=== PATIENT | male | born 1950 | race Caucasian/White ===

== ENCOUNTER 2022-03-25 08:54 | Outpatient (CLI) | payer MEDICARE, OTHER, SELFPAY ==
--- NOTE | 2022-03-25 11:00 | NEURO_ITS ---
Impression: # Complains of numbness of lower extremities. # Motor/sensory asymmetrical axonal neuropathy. # Neurogenic changes in muscles without active fibrilation. # Clinical correlation recommended. Nerve Conduction Studies Anti Sensory Summary Table Stim Site NR Peak (ms) P-T Amp (?V) Site1 Site2 Delta-P (ms) Dist (cm) Kristian (m/s) Left Sup Fibular Anti Sensory (Ant Lat Mall) NO RESPONSE 14 cm NR 14 cm Ant Lat Mall 16.0 Right Sup Fibular Anti Sensory (Ant Lat Mall) NO RESPONSE 14 cm NR 14 cm Ant Lat Mall 16.0 Left Sural Anti Sensory (Lat Mall) Calf 3.6 19.9 Calf Lat Mall 3.6 16.0 44 Right Sural Anti Sensory (Lat Mall) NO RESPONSE Calf NR Calf Lat Mall 16.0 Motor Summary Table Stim Site NR Onset (ms) O-P Amp (mV) Site1 Site2 Delta-0 (ms) Dist (cm) Kristian (m/s) Left Peroneal Motor (Vastus Med) Ankle 4.3 1.9 Popit Ankle 13.0 39.0 30 Popit 17.3 1.7 Right Peroneal Motor (Vastus Med) Ankle 4.6 1.2 Popit Ankle 10.6 37.0 35 Popit 15.2 1.2 Left Tibial Motor (Abd Bethea Brev) Ankle 4.7 0.5 Knee Ankle 11.8 41.0 35 Knee 16.5 0.4 Right Tibial Motor (Abd Bethea Brev) Ankle 4.1 0.6 Knee Ankle 13.2 40.0 30 Knee 17.3 0.1 F Wave Studies NR F-Lat (ms) L-R F-Lat (ms) Left Peroneal (Mrkrs) (EDB) 61.44 2.16 Right Peroneal (Mrkrs) (EDB) 59.28 2.16 Left Tibial (Mrkrs) (Abd Hallucis) 60.12 0.00 Right Tibial (Mrkrs) (Abd Hallucis) 60.12 0.00 EMG Side Muscle Nerve Root Ins Act Fibs Amp Dur Recrt Comment Right AntTibialis Dp Br Fibular L4-5 Nml Nml Nml Nml Reduced Right Gastroc Tibial S1-2 Nml Nml Nml Nml Reduced Right Fibularis Long Sup Br Fibular L5-S1 Nml Nml Nml Nml Reduced Right Flex Dig Long Tibial L5-S2 Nml Nml Nml Nml Reduced Right Ext Dig Brev Dp Br Fibular L5, S1 Nml Nml Nml Nml Reduced Left AntTibialis Dp Br Fibular L4-5 Nml Nml Nml Nml Reduced Left Gastroc Tibial S1-2 Nml Nml Nml Nml Reduced Left Fibularis Long Sup Br Fibular L5-S1 Nml Nml Nml Nml Reduced Left Flex Dig Long Tibial L5-S2 Nml Nml Nml Nml Reduced Left Ext Dig Brev Dp Br Fibular L5, S1 Nml Nml Nml Nml Reduced Right QuadratusFem QuadFemoris L4-5, S1 Nml Nml Nml Nml Reduced Left QuadratusFem QuadFemoris L4-5, S1 Nml Nml Nml Nml Reduced MTDD
== END 2022-03-25 08:55 | disposition home or self-care (01) ==
LOC: ANHNEURO 08:57
PROVIDERS: PCP Family Medicine; Visit Provider Family Medicine
DX: R20.2 Paresthesia of skin (principal)
CPT/HCPCS: 95886; 95910

== ENCOUNTER → 2022-04-04 14:57 | Outpatient (CLI) | payer MEDICARE, OTHER, SELFPAY ==
--- NOTE | ~2022-04-04 | XR_ITS ---
EXAMINATION: XR foot RT min 3V DATE: 04/04/2022 15:22 INDICATION: Right great toe pain. TECHNIQUE: 4 views of right foot were obtained. COMPARISON: None. FINDINGS: Bone alignment is normal. No fracture. There is mild osteoarthritis of first metatarsophala ngeal joint and some of the interphalangeal joints and midfoot joints. There is mild flattening of th e heads of the second and third metatarsals, consistent with osteonecrosis (Freiberg's infraction). T here are enthesophytes at the posterior and plantar aspects of calcaneal tuberosity. IMPRESSION: 1. Mild polyarticular osteoarthritis. Reviewed, dictated and finalized at location A.
== END ==
PROVIDERS: PCP Family Medicine; Visit Provider Family Medicine
DX: M19.071 Primary osteoarthritis, right ankle and foot (principal)
CPT/HCPCS: 73630

== ENCOUNTER → 2022-10-25 14:44 | Outpatient (CLI) | payer MEDICARE, OTHER, SELFPAY ==
--- NOTE | ~2022-10-25 | US_ITS ---
EXAMINATION:US venous doppler LE RT INDICATION:Right lower extremity swelling TECHNIQUE: Multiple grayscale, color flow and Doppler images of the right lower extremity deep venous systems were obtained and reviewed. COMPARISON:08/14/2016 FINDINGS: The common femoral, superficial femoral and popliteal veins demonstrate normal respiratory variation, augmentation and compressibility. Color flow is also seen within the posterior tibial, pe roneal, greater saphenous and profunda veins. IMPRESSION: 1: No lower extremity deep venous thrombosis. Reviewed, dictated and finalized at location A. NG CAGE CASHIER
== END ==
PROVIDERS: PCP Family Medicine; Visit Provider Family Medicine
DX: M79.89 Other specified soft tissue disorders (principal)
CPT/HCPCS: 93971

== ENCOUNTER 2023-01-09 14:30 | Outpatient (RCR) | payer MEDICARE, OTHER, SELFPAY ==
[2022-10-24 11:24] VITALS: BMI 32.2
[2022-10-24 14:50] VITALS: BMI 32.2
[2023-01-09 14:57] VITALS: BMI 32.2; BMI 32.7
== END 2023-01-13 11:06 | disposition home or self-care (01) ==
LOC: ANHDMC 14:30
PROVIDERS: PCP Family Medicine; Visit Provider Family Medicine
DX: E11.40 Type 2 diabetes mellitus with diabetic neuropathy, unspecified (principal); Z71.89 Other specified counseling; Z71.3 Dietary counseling and surveillance
CPT/HCPCS: 97802; 97803; 99199; G0108; G0109

== ENCOUNTER 2023-05-08 13:00 | Outpatient (RCR) | payer MEDICARE, OTHER, SELFPAY ==
[2023-05-08 13:05] VITALS: BMI 32.3
[2023-05-08 13:39] VITALS: BMI 32.3
== END 2023-06-23 10:50 | disposition home or self-care (01) ==
LOC: ANHDMC 13:00
PROVIDERS: PCP Family Medicine; Visit Provider Family Medicine
DX: E11.40 Type 2 diabetes mellitus with diabetic neuropathy, unspecified (principal); Z71.3 Dietary counseling and surveillance; Z71.89 Other specified counseling
CPT/HCPCS: 97803; G0109

== ENCOUNTER 2024-05-11 11:25 | Outpatient (CLI) | payer MEDICARE, OTHER, SELFPAY ==
[2024-05-11 13:47] LABS: Alanine Aminotransferase 29 U/L (6-50); Albumin Level 3.9 g/dL (3.5-5.1); Alkaline Phosphatase 87 U/L (38-126); Anion Gap 5 mmol/L (4-12); Aspartate Amino Transferase 54 U/L (17-59); Bilirubin,Total 0.7 mg/dL (0.2-1.3); Blood Urea Nitrogen 21 mg/dL (9-20); Carbon Dioxide 29 mmol/L (22-30); Chloride 105 mmol/L (98-107); Cholesterol 122 mg/dL (0-200); Estimated Glomerular Filt Rate > 60; Glucose 186 mg/dL (65-110); HDL Direct 28 mg/dL; Lipase 132 U/L (23-300); Potassium 4.7 mmol/L (3.4-5.0); Sodium 139 mmol/L (137-145); Triglycerides 236 mg/dL (<150)
[2024-05-11 13:58] LABS: LDL Cholesterol Direct 71 mg/dL
== END 2024-05-11 11:26 | disposition home or self-care (01) ==
PROVIDERS: PCP Family Medicine; Visit Provider Internal Medicine
DX: E11.40 Type 2 diabetes mellitus with diabetic neuropathy, unspecified (principal)
CPT/HCPCS: 36415; 80053; 80061; 83690

== ENCOUNTER 2025-02-16 01:01 | Day surgery (SDC) | payer MEDICARE, OTHER, SELFPAY ==
[2025-02-07 13:27] VITALS: BMI 33.6
--- OUTSIDE RECORDS SUMMARY | 2025-02-16 01:04 | XMS_ITS | Encounter Summary ---
Author Organization [employer] Address 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
--- OUTSIDE RECORDS SUMMARY | 2025-02-16 01:04 | XMS_ITS | Encounter Summary ---
Author Organization [employer] Address 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
--- OUTSIDE RECORDS SUMMARY | 2025-02-16 01:04 | XMS_ITS | Encounter Summary ---
Author Organization [employer] Address 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
--- OUTSIDE RECORDS SUMMARY | 2025-02-16 01:04 | XMS_ITS | Clinical Summary ---
Author Organization [facility] [employer] Address [address] [place] [address] Care Team Providers Care Youth Associate Name Role Phone Unavailable Primary Care Provider Unavailabl e Source Comments [facility] [employer]non-owned Affiliates and Associated Physician Practices is amultiple site organization consisting of ambulatory clinics and hospital sitesin [place], [place], [place] and [place]. This disclosure is being madepursuant to the Care Everywhere program and may not contain all information available regarding this patient. Last updated 18.[facility] [employer] Social History Tobacco Use Types Packs/Day Years Used Date Smoking Tobacco: Never Assessed Sex and Gender Information Value Date Recorded Sex Assigned at Not on file Gender Identity Not on file Sexual Orientation Not on file Last Filed Vital Signs Vital Sign Reading Time Taken Comments Blood Pressure 125/75 09/10/2014 1:00 AM CDT Pulse 86 09/10/2014 1:00 AM CDT Temperature 37.1 C (98.8 F) 09/09/2014 11:45 PM CDT Respiratory Rate 22 09/09/2014 11:45 PM CDT Oxygen Saturation 96% 09/10/2014 1:00 AM CDT Inhaled Oxygen Concentration - - Weight 90.7 kg (200 lb) 09/09/2014 11:45 PM CDT Height 172.7 cm (5' 8 ) 09/09/2014 11:45 PM CDT Body Mass Index 30.41 09/09/2014 11:45 PM CDT Plan of Treatment Health Maintenance Due Date Last Done Comments COLOGUARD (AGES 45-75) - COL ON CA SCREENING 1952 COLON MONITORING 1952 COLONOSCOPY - COLON CA SCREENING 1952 CT COLONOGRAPHY - COLON CA SCREENING 1952 Colorectal Cancer Screening 1952 FIT - COLON CA SCREENING 1952 FLEX SIG - COLON CA SCREENING 1952 LIPID TESTING 1952 HEPATITIS C SCREENING 09/16/1970 DTAP/TDAP/TD VACCINES (1 - Tdap) 1971 PNEUMOCOCCAL VACCINE 50+ (1 of 1 - PCV) 2002 ZOSTER VACCINE (1 of 2) 2002 COVID-19 VACCINE (1 - 2023-2 5 season) 2024 INFLUENZA VACCINE (#1) 2024 DEPRESSION SCREENING 11/17/2024 Respiratory Syncytial Virus (RSV) Vaccine Pt: or over 60 yrs (1 - 1-dose 75+ series) 2027 HEPATITIS B VACCINE Aged Out No longe r eligible based on patient's age to complete this topic HIB VACCINE Aged Out No longer eligi ble based on patient's age to complete this topic HPV VACCINE Aged Out No longer eligi ble based on patient's age to complete this topic MENINGOCOCCAL (Group B) VACC INE SHARED DECISION-MAKING Aged Out No longer eligibl e based on patient's age to complete this topic MENINGOCOCCAL GROUPS A/C/Y/W VACCINE Aged Out No longer eligible b ased on patient's age to complete this topic
--- OUTSIDE RECORDS SUMMARY | 2025-02-16 01:04 | XMS_ITS | Clinical Summary ---
Author Organization [facility] Address [address] [place] [address] Care Team Providers Care Arc Cutter Plasma Arc Name Role Phone Unavailable Primary Care Provider Unavailabl e Social History Tobacco Use Types Packs/Day Years Used Date Smoking Tobacco: Never Assessed Sex and Gender Information Value Date Recorded Sex Assigned at Not on file Legal Sex Male 7:16 PM CDT Gender Identity Not on file Sexual Orientation Not on file Plan of Treatment Health Maintenance Due Date Last Done Comments Colorectal Cancer Screening Colonoscopy (10 Years) 1952 Hepatitis C 1970 DTaP, Tdap and Td Vaccines ( 1 - Tdap) 1971 Zoster Vaccines (1 of 2) 2002 Pneumococcal Vaccine: 65+ Ye ars (1 of 1 - PCV) 2017 COVID-19 Vaccine ( - 2023-2 5 season) 2024 Influenza Adult (#1) 2024 RSV Immunization or 60+ Years (1 - 1-dose 75+ series) 2027 Meningococcal B Vaccine Aged Out No l onger eligible based on patient's age to complete this topic Meningococcal Vaccine Aged Out No rashaad jaspreet eligible based on patient's age to complete this topic RSV Immunizations Under 20 Months Aged Out No longer eligible based on patient's age to complete this topic
--- OUTSIDE RECORDS SUMMARY | 2025-02-16 01:04 | XMS_ITS | Clinical Summary ---
Author Organization [facility] [address] Address [address] [place] [address] Care Team Providers Care Lipstick Molder Name Role Phone Iván العراقي MD Primary Care Provider [phone] Allergies Active Allergy Reactions Criticality Noted Date Comments Codeine Other (See comments) Low 06/24/2018 Difficulty urinating Dextromethorphan Other (See comments) Low 8 Difficulty urinating Penicillins Anaphylaxis High Sulfa (Sulfonamide Antibiotics) Hives Medium Tetracycline Hives Medium Tramadol Other (See comments) Low convulsions Medications aspirin (ASPIRIN LOW DOSE) 81 mg tablet take 1 tablet (81MG) by oral route every day 0 2 Active ibuprofen (ADVIL,MOTRIN) 200 mg tab/cap Take 2 tablet/capsule (400 mg total) by mouth every 6 (six) hours as needed for pain Active albuterol HFA (PROVENTIL HFA,VENTOLIN HFA,PROAIR HFA) 90 mcg/actuation inhaler Inhale 2 puffs every 4 (four) hours as needed for wheezing Active famotidine (PEPCID) 20 mg tablet Take 1 tablet (20 mg total) by mouth 2 (two) times a day Active folic acid/multivit-m in/lutein (CENTRUM SILVER ORAL) Take 1 tablet by mouth daily Active omega 1-our-znt-fish oil 1,000 mg (120 mg-180 mg) capsule Take 2 capsules (2,000 mg total) by mouth daily Active cholecalciferol (VITAMIN D-3) 2000 unit capsule 1 capsule (2,000 Units total) 2 (two) times a day Active vit C/E/Zn/coppr/trevor tein/zeaxan (PRESERVISION AREDS-2 ORAL) Take by mouth Ac tive metFORMIN (GLUCOPHAGE) 500 mg tablet TAKE 1 TABLET BY MOUTH TWICE A DAY FOR 90 DAYS 2 Active Ozempic 0.25 mg or 0.5 mg (2 mg/3 mL) pen injector injection Inject 0.25 mg as directed once a week 3 Active simvastatin (ZOCOR) 20 mg tablet TAKE 1 TABLET BY MOUTH EVERY DAY AT NIGHT 90 tablet 3 3 Active Additional Information Patient not taking.Reported on 06/15/2024 atorvastatin (LIPITOR) 10 mg tablet Take 1 tablet (10 mg total) by mouth daily 4 Active glimepiride (AMARYL) 1 mg tablet Take 1 tablet (1 mg total) by mouth 2 (two) times a day 4 Active lisinopriL (PRINIVIL,ZESTR IL) 5 mg tablet TAKE 1 TABLET BY MOUTH EVERY DAY 90 tablet 1 4 Active carvediloL (COREG) 12.5 mg tablet TAKE 1 TABLET BY MOUTH TWICE A DAY WITH FOOD 180 tablet 1 4 Active Active Problems Problem Noted Date Diagnosed Date Prostate cancer 03/26/2019 Overview (03/26/2019): Added automatically from request for surgery Coronary artery disease invo lving [place] coronary artery of [place] heart without angina pectoris 08/14/2017 S/P coronary artery stent placement 08/14/2017 Surgical History Surgery Date Site/Laterality Comments CARDIAC STENT PLACEMENT KNEE ARTHROSCOPY Right x3 PROSTATE SURGERY 05/18/2019 biopsy; & 02/2018 CHOLECYSTECTOMY POPLITEAL SYNOVIAL CYST EXCISION Right HEMORRHOID SURGERY 11/17/1973 - 11/16/1974 Medical History Medical History Date Comments Hypertension Hypertension Myocardial infarction (HCC) 02/2010 Asthma PONV (postoperative nausea and vomiting) Hyperlipidemia GERD (gastroesophageal reflux disease) Feeling anxious related to upcom ing prostate surgery Cancer (HCC) 01/2019 skin cancer on r ight hand Prostate CA (HCC) Family History Medical History Relation Name Comments Coronary artery disease Father Pati nary Artery Disease; Cancer Mother pancreatic Relation Name Status Comments Brother unknown Alive Father Mother Sister unknown Alive Social History Tobacco Use Types Packs/Day Years Used Date Smoking Tobacco: Every Day Cigarettes 1 58.2 Started: 1964 Smokeless Tobacco: Never Tobacco Cessation:Ready to Q uit: Not Asked; Counseling Given: Not Answered Comments:Counselled pt to contact PCP for assist with quitting, instructed pt not smoke for 24 hrs prior to surgery. 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 Gender Identity Not on file Sexual Orientation Not on file Obstetrics History Last Filed Vital Signs Vital Sign Reading Time Taken Comments Blood Pressure 124/78 06/15/2024 1:58 PM CDT Pulse 70 06/15/2024 1:58 PM CDT Temperature 36.2 C (97.2 F) 08/01/2020 8:58 AM CDT Respiratory Rate 16 08/17/2019 8:15 AM CDT Oxygen Saturation 93% 06/15/2024 1:58 PM CDT Inhaled Oxygen Concentration - - Weight 97.6 kg (215 lb 1.6 oz) 06/15/2024 1:58 P M CDT Height 172.7 cm (5' 8 ) 06/15/2024 1:58 PM CDT Body Mass Index 32.71 06/15/2024 1:58 PM CDT Plan of Treatment Health Maintenance Due Date Last Done Comments Colon Cancer Screening-Colonoscopy 1952 Depression Screening 1952 Fall Risk Assessment 1952 Hepatitis C Screening 1952 DTaP/Tdap/Td Vaccine (1 - Tdap) 1963 Hepatitis B Screening 1970 Pneumococcal vaccine 65+ (1 of 2 - PCV) 1971 Lung Cancer Screening 2002 Zoster Vaccine (1 of 2) 2002 Abdominal Aortic Aneurysm (AAA) Screen 2017 Well Visit 65+ 2017 Influenza Vaccine (#1) 2024 08/31/2017 Prostate Cancer Screening-PSA Discontinued 09/28/2019, 08/30/2019 Procedures Procedure Name Priority Date/Time Associated Diagnosis Comments PSA DIAGNOSTIC Routine 09/28/2019 12:48 PM ALTERATION MANAGER Prostate cancer (HCC) from Last 3 Months or Most Recently Relevant to Health Maintenance Results * PSA diagnostic (09/28/2019 12:48 PM ALTERATION MANAGER) PSA-Total <0.01 <=5.40 ng/mL [facility] Comment: Interpretive Data AGE SEX REFERENCE INTERVAL 0 minutes-150 years Female None 0 minutes-49 years Male None 50-59 years Male 0-3.90 60-69 years Male 0-5.40 70-79 years Male 0-6.20 80-150 years Male 0-6.20 Current interpretive data last revised 2018. Blood specimen (specimen) 09/28/2019 12:48 PM ALTERATION MANAGER 09/28/2019 4:08 PM ALTERATION MANAGER us Migel Cartagena MD LAB BLOOD ORDERABLES Fi nal Result ALEXANDER LANCASTER [id number] [address] Lozoya Department of Laboratories [place] [phone] from Last 3 Months or Most Recently Relevant to Health Maintenance Insurance MEDICARE [facility] MEDICARE [facility] MEDICARE [facility] Advance Directives For more information, please contact: [phone] Documents on File Type Date Recorded Patient Congressional Aide Expl anation ADVANCE DIRECTIVE 08/18/2019 1:54 PM MARBELLA Faulkner WILL ADVANCE DIRECTIVE 08/18/2019 1:54 PM POWER OF ARTIST REPRESENTATIVE-FINANCIAL/MEDICAL * Full Code (Latest Code Status on File) Date Activated Date Inactivated Comments 08/16/2019 4:21 PM 08/17/2019 6:28 PM Care Teams Lipstick Molder Relationship Specialty Start Date End Date Iván العراقي MD [address] [place] [id number] PCP - General 02/14/17
--- OUTSIDE RECORDS SUMMARY | 2025-02-16 01:04 | XMS_ITS | Encounter Summary ---
Author Organization [employer] Address [address] [place] [address] Care Team Providers Care Closing Coordinator Name Role Phone Ally Denson Primary Care Provider Unava ilable Encounter Details Date Type Department Care Team (Late st Contact Info) Description 03/22/2002 Outpatient Historical [facility] Support [facility]. ([facility]) [address] 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
--- OUTSIDE RECORDS SUMMARY | 2025-02-16 01:04 | XMS_ITS | Clinical Summary ---
Author Organization 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
--- OUTSIDE RECORDS SUMMARY | 2025-02-16 01:04 | XMS_ITS | Referral Summary ---
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 artery of [place] heart without angina pectoris 08/14/2017 S/P coronary artery stent placement 08/14/2017 Social History Tobacco Use Types Packs/Day Years [...] on file Legal 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 Gender Identity Not on file Sexual Orientation [...] 06/15/2024 1:58 PM CDT Plan of Treatment Not on file Procedures Procedure Name Priority Date/Time Associated Diagnosis Comments PSA DIAGNOSTIC Routine 09/28/2019 12:48 PM CHIP LOFT WORKER Prostate cancer (HCC) from Last 3 Months or Most Recently Relevant to Health Maintenance Results * PSA diagnostic (09/28/2019 12:48 PM CHIP LOFT WORKER) PSA-Total <0.01 <=5.40 ng/mL [facility]LEX[facility] Comment: Interpretive Data AGE SEX REFERENCE INTERVAL 0 minutes-150 years Female None 0 minutes-49 years Male None 50-59 years Male 0-3.90 60-69 years Male 0-5.40 70-79 years Male 0-6.20 80-150 years Male 0-6.20 Current interpretive data last revised 2018. Blood specimen (specimen) 09/28/2019 12:48 PM CHIP LOFT WORKER 09/28/2019 4:08 PM CHIP LOFT WORKER us Migel Cartagena MD LAB BLOOD ORDERABLES Fi nal Result ALEXANDER [address] Sofía Lozoya Department [place] [address] from Last 3 Months or Most Recently Relevant to Health Maintenance Insurance MEDICARE [facility] MEDICARE [facility] [place] MEDICARE [facility] [facility] Advance Directives For more information, please contact: [phone] Documents on File Type Date Recorded Patient Or Assistant Expl anation ADVANCE DIRECTIVE 08/18/2019 1:54 PM MARBELLA Faulkner WILL ADVANCE DIRECTIVE 08/18/2019 1:54 PM POWER OF MANUSCRIPT EDITOR-FINANCIAL/MEDICAL * Full Code (Latest Code Status on File) Date Activated Date Inactivated Comments 08/16/2019 4:21 PM 08/17/2019 6:28 PM Care Teams Poultry Scientist Relationship Specialty Start Date End Date Iván العراقي MD [address] [place] [id number] PCP - General 02/14/17
[2025-02-16 11:03] VITALS: BP 146/81; PULSE 82; RESP 18; TEMP 37.1; O2SAT 96
[2025-02-16] MEDS: LACTATED RINGERS 1,000 ML 150 ML IV CONT (11:15)
[2025-02-16 11:16] LABS: Glucose Point of Care 185 mg/dl (65-105)
--- NOTE | 2025-02-16 11:54 | P.PNAN_ITS ---
Anes - Initial Pre Proc Eval Procedure: Operation Date: 02/16/25 12:30 Proposed Procedures p Screening Colonoscopy - Alvarado Caldwell MD Date/Time: 02/16/25 11:54 Surgeon: Alvarado Caldwell MD Pre Op Diagnosis: Screening Patient Data Age: 74 Gender: M Height: 1.73 m Weight: 94.8 kg Last Vital Signs Temp 37.1 C 02/16/25 11:03 Pulse 82 02/16/25 11:03 Resp 18 02/16/25 11:03 BP 146/81 H 02/16/25 11:03 Pulse Ox 96 02/16/25 11:03 O2 Del Method Room Air 02/16/25 11:03 Allergies Allergy/AdvReac Type Severity Reaction Status Date / Time codeine Allergy Intermediate unable to Verified 02/16/25 11:02 urinate Penicillins Allergy Unknown Anaphylaxis Verified 02/16/25 11:02 Sulfa (Sulfonamide Allergy Unknown Rash Verified 02/16/25 11:02 Antibiotics) tetracycline Allergy Unknown Rash Verified 02/16/25 11:02 tramadol Allergy Unknown Difficulty Verified 02/16/25 11:02 Breathing dextromethorphan AdvReac unable to Verified 02/16/25 11:02 urinate Home Medications ?Medication ?Instructions ?Recorded ?Confirmed ?Type aspirin 81 mg tablet,delayed 81 mg PO DAILY 01/03/23 02/16/25 History release carvedilol 12.5 mg tablet 12.5 mg PO Q12H 01/03/23 02/16/25 History famotidine 10 mg tablet (Pepcid AC) 10 mg PO BID 01/03/23 02/16/25 History lisinopril 5 mg tablet 5 mg PO DAILY 01/03/23 02/16/25 History gyutimpy-sf-dcgti 300 mcg-K 60 1 tablet PO DAILY 01/03/23 02/16/25 History mcg-lycop 600 mcg-lutein 300 mcg tablet (Centrum Silver Men) lancets 32 gauge (Easy Touch #300 ea 05/12/24 02/07/25 Rx Lancets) lancets 33 gauge (OneTouch Delica #300 ea 05/13/24 02/07/25 Rx Plus Lancet) vit C 250 mg-vit E 90 mg-zinc 40 1 tablet PO DAILY 08/31/24 02/16/25 History mg-copper 1 kj-kciocn-tzrgqi capsule (PreserVision AREDS-2) blood sugar diagnostic (OneTouch #100 ea 11/16/24 02/07/25 Rx Verio test strips) glimepiride 1 mg tablet 1 mg PO BID #180 tabs 12/29/24 02/16/25 Rx rosuvastatin 10 mg tablet 10 mg PO DAILY #90 tabs 12/29/24 02/16/25 Rx fenofibrate micronized 134 mg 134 mg PO DAILY #90 caps 12/31/24 02/16/25 Rx capsule Laboratory Tests 02/16/25 11:07 POC Capillary Glucose 185 H mg/dl (65-105) Patient hx anesthesia problems: none Family hx anesthesia problems: none Results Review: All pre-operative results and documents have been reviewed as part of the pre- operative evaluation. [facility] Past Medical History Medical History Mixed hyperlipidemia Encounter for immunization Degenerative arthritis of knee, bilateral Fibromyalgia Hypertension History of heart attack 02/2010 Monoarthritis, not elsewhere classified, unspecified ankle and foot Type 2 diabetes mellitus with diabetic neuropathy, unspecified Peripheral neuropathy Personal history of malignant neoplasm of prostate Paresthesia of both feet Unspecified cataract Obesity, unspecified Atherosclerosis of coronary artery Cigarette nicotine dependence Surgical History Surgical History History of cholecystectomy History of lateral meniscus repair of right knee x3 History of removal of cyst Bakers cyst right knee 2000 Status post surgical removal of malignant neoplasm of skin H/O prostatectomy 08/16/2019 Family History Family History Father Diabetes mellitus Heart disease Mother Pancreatic cancer Sibling Cancer Social History Social History Smoking packs per day: 1 Smoking cigarettes per day: 20.0 Smoking status: Current every day smoker Tobacco type: cigarettes Alcohol intake: current Alcohol use details: Seldom Substance use: never Substance use type: does not use Lack of Transportation: No Lack of Food: Never True Current Housing: I Have Housing Concerned About Future Housing: No Difficulty Paying Gas/Electric Bills: No Difficulty Paying for Meds: No Currently Unemployed: YES Education: High School Diploma/GED Difficulty w/ Childcare or Family Care: No Living arrangements: with family Occupation/Education: retired Gender identity (if verbalized by the patient): Male Sexual Orientation (if Verbalized by the Patient): Straight or Heterosexual Spiritual care concerns: No Anes - Eval Final PreProcedure Day of Procedure 02/16/25 11:54 Patient weight: obese Heart: regular rate and rhythm Lungs: clear to auscultation Airway: Mallampati scale class III Neurological: alert and oriented Last oral intake: >/= 8 hours ASA classification: III Emergent: no Anesthetic plan: proceed Anesthesia type and monitoring: general GIVS and standard monitoring Results Review: All pre-operative results and documents have been reviewed as part of the pre- operative evaluation. Informed Consent: The patient's anesthetic plan and its attendant risks and benefits were discussed with the patient/family/POA. Questions were solicited and answers pr ovided to the satisfaction of the patient/family/POA.
--- NOTE | 2025-02-16 12:10 | PM.HPGS ---
History of Present Illness History of Present Illness Consent: Risks, benefits, and alternatives have been discussed and questions answered. Patient agrees to proceed with procedure. Chief complaint: Screening Narrative: Estevan Condon is a 74 year old male here for colonoscopy, h/o polyp Review of Systems Review of Systems: All systems reviewed & are unremarkable except as noted in HPI and below PMFSH Past Medical History Medical History Colon polyp Mixed hyperlipidemia Encounter for immunization Degenerative arthritis of knee, bilateral Fibromyalgia Hypertension History of heart attack 02/2010 Monoarthritis, not elsewhere classified, unspecified ankle and foot Type 2 diabetes mellitus with diabetic neuropathy, unspecified Peripheral neuropathy Personal history of malignant neoplasm of prostate Paresthesia of both feet Unspecified cataract Obesity, unspecified Atherosclerosis of coronary artery Cigarette nicotine dependence Surgical History Surgical History History of cholecystectomy History of lateral meniscus repair of right knee x3 History of removal of cyst Bakers cyst right knee 2000 Status post surgical removal of malignant neoplasm of skin H/O prostatectomy 08/16/2019 Family History Family History Father Diabetes mellitus Heart disease Mother Pancreatic cancer Sibling Cancer Social History Social History Smoking packs per day: 1 Smoking cigarettes per day: 20.0 Smoking status: Current every day smoker Tobacco type: cigarettes Alcohol intake: current Alcohol use details: Seldom Substance use: never Substance use type: does not use Lack of Transportation: No Lack of Food: Never True Current Housing: I Have Housing Concerned About Future Housing: No Difficulty Paying Gas/Electric Bills: No Difficulty Paying for Meds: No Currently Unemployed: YES Education: High School Diploma/GED Difficulty w/ Childcare or Family Care: No Living arrangements: with family Occupation/Education: retired Gender identity (if verbalized by the patient): Male Sexual Orientation (if Verbalized by the Patient): Straight or Heterosexual Spiritual care concerns: No Meds Home Medications and Allergies Home Medications ?Medication ?Instructions ?Recorded ?Confirmed ?Type aspirin 81 mg tablet,delayed 81 mg PO DAILY 01/03/23 02/16/25 History release carvedilol 12.5 mg tablet 12.5 mg PO Q12H 01/03/23 02/16/25 History famotidine 10 mg tablet (Pepcid AC) 10 mg PO BID 01/03/23 02/16/25 History lisinopril 5 mg tablet 5 mg PO DAILY 01/03/23 02/16/25 History qyjluajt-ll-nurpj 300 mcg-K 60 1 tablet PO DAILY 01/03/23 02/16/25 History mcg-lycop 600 mcg-lutein 300 mcg tablet (Centrum Silver Men) lancets 32 gauge (Easy Touch #300 ea 05/12/24 02/07/25 Rx Lancets) lancets 33 gauge (OneTouch Delica #300 ea 05/13/24 02/07/25 Rx Plus Lancet) vit C 250 mg-vit E 90 mg-zinc 40 1 tablet PO DAILY 08/31/24 02/16/25 History mg-copper 1 sb-mnbvgf-xcucfz capsule (PreserVision AREDS-2) blood sugar diagnostic (OneTouch #100 ea 11/16/24 02/07/25 Rx Verio test strips) glimepiride 1 mg tablet 1 mg PO BID #180 tabs 12/29/24 02/16/25 Rx rosuvastatin 10 mg tablet 10 mg PO DAILY #90 tabs 12/29/24 02/16/25 Rx fenofibrate micronized 134 mg 134 mg PO DAILY #90 caps 12/31/24 02/16/25 Rx capsule Allergies Allergy/AdvReac Type Severity Reaction Status Date / Time codeine Allergy Intermediate unable to Verified 02/16/25 11:02 urinate Penicillins Allergy Unknown Anaphylaxis Verified 02/16/25 11:02 Sulfa (Sulfonamide Allergy Unknown Rash Verified 02/16/25 11:02 Antibiotics) tetracycline Allergy Unknown Rash Verified 02/16/25 11:02 tramadol Allergy Unknown Difficulty Verified 02/16/25 11:02 Breathing dextromethorphan AdvReac unable to Verified 02/16/25 11:02 urinate Vital Signs Vital Signs - 24 hr 02/16/25 11:03 Temperature 98.7 F Pulse Rate 82 Respiratory Rate 18 Blood Pressure 146/81 H Pulse Oximetry 96 Oxygen Delivery Room Air Exam Const: General: comfortable and no acute distress HENMT: Face/Nose/Sinus: Normal nares present Eyes: General: appearance normal, both eyes and all related structures Neck: Neck: no JVD Resp: Auscultation: clear to auscultation bilaterally Cardio: Rate: regular rate Rhythm: regular rhythm GI: Inspection: non-distended GI Palp: Yes Soft to palpation Skin: General skin exam: normal color Neuro: Speech: normal speech Extrem: General: normal to inspection Psych: Mental Status: mental status grossly normal Assessment and Plan Assessment and plan (1) Colon polyp: Code(s): K63.5 - Polyp of colon Status: Acute Assessment and Plan: colonoscopy
[2025-02-16 12:23] VITALS: BP 108/51; PULSE 82; RESP 19; O2SAT 96
[2025-02-16 12:33] VITALS: BP 113/68; PULSE 80; RESP 18; O2SAT 96
[2025-02-16 12:40] VITALS: BP 139/75; PULSE 74; RESP 22; O2SAT 96
== END 2025-02-16 12:56 | disposition home or self-care (01) ==
PROVIDERS: PCP Family Medicine; Referring Provider Family Medicine; Visit Provider Internal Medicine Gastroenterology
PROC: 0DJD8ZZ Inspection of Lower Intestinal Tract, Via Natural or Artificial Opening Endoscopic (ICD-10-PCS; CPT 45378; principal; 2025-02-16 12:30)
DX: Z12.11 Encounter for screening for malignant neoplasm of colon (principal); K64.8 Other hemorrhoids; E78.2 Mixed hyperlipidemia; I10 Essential (primary) hypertension; M17.0 Bilateral primary osteoarthritis of knee; E11.40 Type 2 diabetes mellitus with diabetic neuropathy, unspecified; I25.10 Atherosclerotic heart disease of native coronary artery without angina pectoris; M79.7 Fibromyalgia; I25.2 Old myocardial infarction; G62.9 Polyneuropathy, unspecified; F17.210 Nicotine dependence, cigarettes, uncomplicated; E66.9 Obesity, unspecified; Z68.31 Body mass index [BMI] 31.0-31.9, adult; Z79.82 Long term (current) use of aspirin; Z79.84 Long term (current) use of oral hypoglycemic drugs; Z98.890 Other specified postprocedural states; Z90.49 Acquired absence of other specified parts of digestive tract; Z86.0100 Personal history of colon polyps, unspecified; Z85.46 Personal history of malignant neoplasm of prostate; Z80.0 Family history of malignant neoplasm of digestive organs; Z82.49 Family history of ischemic heart disease and other diseases of the circulatory system
CPT/HCPCS: G0105; 82948; J2704; J7120

== ENCOUNTER 2025-04-26 08:17 | Outpatient (CLI) | payer MEDICARE, OTHER, SELFPAY ==
--- OUTSIDE RECORDS SUMMARY | 2025-04-26 08:23 | XMS_ITS | Encounter Summary ---
Author Organization [employer] Address [address] [place] [address] Care Team Providers Care Director And Professor Name Role Phone Ally Denson Primary Care Provider Unava ilable Encounter Details Date Type Department Care Team (Late st Contact Info) Description 03/22/2002 Outpatient Historical [facility] [address] 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
--- OUTSIDE RECORDS SUMMARY | 2025-04-26 08:23 | XMS_ITS | Clinical Summary ---
[facility] Organization 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
--- OUTSIDE RECORDS SUMMARY | 2025-04-26 08:23 | XMS_ITS | Clinical Summary ---
Author Organization [facility] [address] Address [address] [place] [address] Care Team Providers Care Social Welfare Administrator Name Role Phone Iván العراقي MD Primary Care Provider [phone] Allergies Active Allergy Reactions Criticality Noted Date Comments Codeine Other (See comments) Low 06/24/2018 Difficulty urinating Dextromethorphan Other (See comments) Low 8 Difficulty urinating Penicillins Anaphylaxis High Sulfa (Sulfonamide Antibiotics) Hives Medium Tetracycline Hives Medium Tramadol Other (See comments) Low convulsions Medications aspirin (ASPIRIN LOW DOSE) 81 mg tablet take 1 tablet (81MG) by oral route every day 0 07/02/20 12 Active ibuprofen (ADVIL,MOTRIN) 200 mg tab/cap Take [...] 2 (two) times a day Active folic acid/multivit- min/lutein (CENTRUM SILVER ORAL) Take 1 tablet by mouth daily Active omega 2-ffj-bcs-fish oil 1,000 mg (120 mg-180 mg) capsule Take 2 capsules (2,000 mg total) by mouth daily Active cholecalcifero l (VITAMIN D-3) 2000 unit capsule 1 capsule (2,000 Units total) 2 (two) times a day Active vit C/E/Zn/coppr/l utein/zeaxan (PRESERVISION AREDS-2 ORAL) Take by mouth Ac tive metFORMIN (GLUCOPHAGE) 500 mg tablet TAKE 1 TABLET BY MOUTH TWICE A DAY FOR 90 DAYS 04/01/20 22 Active Ozempic 0.25 mg or 0.5 mg (2 mg/3 mL) pen injector injection Inject 0.25 mg as directed once a week 06/03/20 23 Active simvastatin (ZOCOR) 20 mg tablet TAKE 1 TABLET BY MOUTH EVERY DAY AT NIGHT 90 tablet 3 07/31/20 23 Active Additional Information Patient not taking.Reported on 06/15/2024 atorvastatin (LIPITOR) 10 mg tablet Take 1 tablet (10 mg total) by mouth daily 05/27/20 24 Active glimepiride (AMARYL) 1 mg tablet Take 1 tablet (1 mg total) by mouth 2 (two) times a day 05/12/20 24 Active carvediloL (COREG) 12.5 mg tablet TAKE 1 TABLET BY MOUTH TWICE A DAY WITH FOOD 180 tablet 1 11/08/20 24 Active lisinopriL (PRINIVIL,ZEST RIL) 5 mg tablet TAKE 1 TABLET BY MOUTH EVERY DAY 90 tablet 1 04/04/20 25 Active lisinopriL (PRINIVIL,ZEST RIL) 5 mg tablet TAKE 1 TABLET BY MOUTH EVERY DAY 90 tablet 1 09/02/20 24 025 Discontinued Active Problems Problem Noted Date Diagnosed Date Prostate cancer 03/26/2019 Overview (03/26/2019): Added automatically from request for surgery [id number] Coronary artery disease invo lving [place] coronary artery of [place] heart without angina pectoris 08/14/2017 S/P coronary [...] Date Smoking Tobacco: Every Day Cigarettes 1 58.4 Started: 1964 Smokeless Tobacco: Never Tobacco Cessation:Ready [...] on file 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 Gender Identity Not on file Sexual Orientation [...] P M CDT Height 172.7 cm (5' 8) 06/15/2024 1:58 PM CDT Body Mass Index [...] 2017 Well Visit 65+ 2017 Influenza Vaccine (Season Ended) 2025 08/31/20 Prostate Cancer Screening-PSA Discontinued 09/28/2019, 08/30/2019 Procedures Procedure Name Priority Date/Time Associated Diagnosis Comments PSA DIAGNOSTIC Routine 09/28/2019 12:48 PM GRAVITY FLOW IRRIGATOR Prostate cancer (HCC) from Last 3 Months or Most Recently Relevant to Health Maintenance Results * PSA diagnostic (09/28/2019 12:48 PM GRAVITY FLOW IRRIGATOR) PSA-Total <0.01 <=5.40 ng/mL [facility] Comment: Interpretive Data AGE SEX REFERENCE INTERVAL 0 minutes-150 years Female None 0 minutes-49 years Male None 50-59 years Male 0-3.90 60-69 years Male 0-5.40 70-79 years Male 0-6.20 80-150 years Male 0-6.20 Current interpretive data last revised 2018. Blood specimen (specimen) 09/28/2019 12:48 PM GRAVITY FLOW IRRIGATOR 09/28/2019 4:08 PM GRAVITY FLOW IRRIGATOR Migel Cartagena MD LAB BLOOD ORDERABLES Fi nal Result [facility] [address] Department [place] [address] from Last 3 Months or Most Recently Relevant to Health Maintenance Insurance MEDICARE [facility] MEDICARE [facility] MEDICARE [place] [address] Advance Directives For more information, please contact: [phone] Documents on File Type Date Recorded Patient Insurance Rater Expl anation ADVANCE DIRECTIVE 08/18/2019 1:54 PM HARSHADRENÉ G WILL ADVANCE DIRECTIVE 08/18/2019 1:54 PM POWER OF BASKET HAND WEAVER-FINANCIAL/MEDICAL * Full Code (Latest Code Status on File) Date Activated Date Inactivated Comments 08/16/2019 4:21 PM 08/17/2019 6:28 PM Care Teams Social Welfare Administrator Relationship Specialty Start Date End Date Iván العراقي MD [address] [place] [address] PCP - General 02/14/17
--- OUTSIDE RECORDS SUMMARY | 2025-04-26 08:23 | XMS_ITS | Referral Summary ---
Author Organization [facility] [address] Address [address] [place] [address] Care Team Providers Care Plodder Operator Name Role Phone Iávn العراقي MD Primary Care Provider [phone] Allergies Active Allergy Reactions Criticality Noted Date [...] 1 tablet by mouth daily Active omega 7-rpy-bee-fish oil 1,000 mg (120 mg-180 mg) capsule [...] (03/26/2019): Added automatically from request for surgery [id number] Coronary artery disease invo lving [place] coronary artery of [place] heart without angina pectoris 08/14/2017 S/P coronary [...] on file Legal 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 Blood specimen (specimen) 09/28/2019 12:48 PM LIFE SCIENCE TECHNICIAN 09/28/2019 4:08 PM LIFE SCIENCE TECHNICIAN us Migel Cartagena MD LAB BLOOD ORDERABLES Fi nal Result [facility] [address] Department [place] [address] from Last 3 Months or Most Recently Relevant to Health Maintenance Insurance MEDICARE [facility] MEDICARE [facility] MEDICARE [facility] Advance Directives For more information, please contact: [phone] Documents on File Type Date Recorded Patient Rotary Soil Stabilizer Operator Expl anation ADVANCE DIRECTIVE 08/18/2019 1:54 PM MARBELLA Faulkner WILL ADVANCE DIRECTIVE 08/18/2019 1:54 PM POWER OF GREASE REFINING SUPERVISOR-FINANCIAL/MEDICAL * Full Code (Latest Code Status on File) Date Activated Date Inactivated Comments 08/16/2019 4:21 PM 08/17/2019 6:28 PM Care Teams Plodder Operator Relationship Specialty Start Date End Date Iván العراقي MD [address] [place] [id number] PCP - General 02/14/17
--- OUTSIDE RECORDS SUMMARY | 2025-04-26 08:23 | XMS_ITS | Encounter Summary ---
Author Organization [employer] Address 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
--- OUTSIDE RECORDS SUMMARY | 2025-04-26 08:23 | XMS_ITS | Clinical Summary ---
Author Organization [facility] Address [address] [place] [address] Care Team Providers Care Workforce Management Coordinator Name Role Phone Unavailable Primary Care Provider Unavailabl e Source Comments [facility],non-owned Affiliates and Associated Physician Practices is amultiple site organization consisting of ambulatory clinics and hospital sitesin [place], [place], [place] and [place]. This disclosure is being madepursuant to the Care Everywhere program and may not contain all information available regarding this patient. Last updated 18.[facility] Social History Tobacco Use Types Packs/Day Years Used Date Smoking Tobacco: Never Assessed Sex and Gender Information Value Date Recorded Sex Assigned at Not on file Legal Sex Male 6:31 AM RESIDENT CAREGIVER Gender Identity Not on file Sexual Orientation [...] 11:45 PM CDT Height 172.7 cm (5' 8) 09/09/2014 11:45 PM CDT Body Mass Index [...] VACCINE (1 of 2) 2002 COVID-19 VACCINE ( - 2023-2 5 season) 2024 DEPRESSION SCREENING 11/17/2024 INFLUENZA VACCINE (Season Ended) 2025 Respiratory Syncytial Virus (RSV) Vaccine Pt: or [...]
--- OUTSIDE RECORDS SUMMARY | 2025-04-26 08:23 | XMS_ITS | Encounter Summary ---
Author Organization [employer] Address 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
--- OUTSIDE RECORDS SUMMARY | 2025-04-26 08:23 | XMS_ITS | Encounter Summary ---
Author Organization [employer] Address 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
== END 2025-04-26 08:18 | disposition home or self-care (01) ==
LOC: ANHAUDIO 08:17
PROVIDERS: PCP Family Medicine; Visit Provider Otolaryngology
DX: H93.13 Tinnitus, bilateral (principal); H90.3 Sensorineural hearing loss, bilateral
CPT/HCPCS: 92557; 92567